=== PATIENT | male | born 1995 | race African-American/Black ===

== ENCOUNTER 2017-10-20 15:50 | Emergency (ER) | payer MEDICAID, OTHER ==
[~2017-10-20] VITALS: Ht 185.4 cm; Wt 81.2 kg
[2017-10-20 16:06] VITALS: BP 130/66
== END 2017-10-20 16:30 | disposition home or self-care (01) ==
LOC: ER 15:50
DX: F41.9 Anxiety disorder, unspecified (principal); F43.9 Reaction to severe stress, unspecified
CPT/HCPCS: 99284

== ENCOUNTER 2018-06-07 20:19 | Emergency (ER) | payer OTHER ==
[~2018-06-07] VITALS: Ht 185.4 cm; Wt 72.0 kg
[2018-06-07 20:28] VITALS: BP 120/62
[2018-06-07] MEDS ORDERED: BENZ-16 PO (20:53)
[2018-06-07] MEDS ORDERED: GUAI120L55 PO (20:53)
== END 2018-06-07 21:04 | disposition home or self-care (01) ==
LOC: ER 20:20
DX: J06.9 Acute upper respiratory infection, unspecified (principal); Z98.890 Other specified postprocedural states; Z79.899 Other long term (current) drug therapy
CPT/HCPCS: 99283